=== PATIENT | female | born 1990 | race Caucasian/White ===

== ENCOUNTER 2017-07-08 20:37 | Emergency (ER) | payer OTHER ==
[2017-07-08 20:43] VITALS: BP 122/84; PULSE 93; TEMP 97.9; BMI 27.9
[2017-07-08 20:59] LABS: URINE APPEARANCE CLEAR; URINE BILIRUBIN NEGATIVE (NEGATIVE); URINE BLOOD NEGATIVE (NEGATIVE); URINE COLOR STRAW; URINE GLUCOSE (UA) NEGATIVE (NEGATIVE); URINE KETONE NEGATIVE (NEGATIVE); URINE NITRITE NEGATIVE (NEGATIVE); URINE PROTEIN NEGATIVE (NEGATIVE); URINE UROBILINOGEN NEGATIVE mg/dL (0.2-1.0)
--- NOTE | 2017-07-08 21:30 | PDOC ---
History of Present Illness - General Chief Complaint: Pain Stated Complaint: STOMACH PAIN Time Seen by Provider: 07/08/17 20:58 History Source: Patient - History of Present Illness Initial Comments: 07/08/17 21:29 26-year-old female complaining of right lower quadrant pain started this evening that worsens when she got home. Patient denies vaginal discharge, vaginal pain, reports same sexual partner and no exposure to sexually transmitted disease. LMP: 06/2017Denies nausea vomiting, urinary symptoms. Last bowel movement prior to arrival which is normal. Past surgical history: Appendectomy Timing/Duration: reports: intermittent Abdominal Pain Onset Location: reports: RLQ Pain Radiation: reports: no radiation Past History - Past Medical History Allergies/Adverse Reactions: Allergies Allergy/AdvReac Type Severity Reaction Status Date / Time amoxicillin Allergy Verified 07/08/17 20:40 Home Medications: Ambulatory Orders NK [No Known Home Medication] 07/08/17 Anemia: No Asthma: No Cancer: No Cardiac Disorders: No CVA: No COPD: No CHF: No Dementia: No Diabetes: No GI Disorders: No Disorders: Yes (H/O OVARIAN CYSTS) HTN: No Hypercholesterolemia: No Liver Disease: No Seizures: No Thyroid Disease: No - Surgical History Abdominal Surgery: No Appendectomy: Yes (08/30/13) Cardiac Surgery: No Cholecystectomy: No Lung Surgery: No Neurologic Surgery: No Orthopedic Surgery: No - Suicide/Smoking/Psychosocial Hx Smoking History: Never smoked Have you smoked in the past 12 months: No Number of Cigarettes Smoked Daily: 0 Hx Alcohol Use: Yes (SOCIAL) Drug/Substance Use Hx: No Substance Use Type: None Hx Substance Use Treatment: No Abd/GI Specific PMHX - Complaint Specific PMHX Colitis: No Diverticulitis: No Gall Bladder Disease: No GERD: Yes Hepatitis: No Irritable Bowel Synd (IBS): No Pancreatitis: No GI Ulcer Disease: No Review of Systems - Review of Systems Able to Perform ROS?: Yes Is the patient limited Yakut proficient: No Constitutional: No: Symptoms Reported, See HPI, Chills, Diaphoresis, Fever, Loss of Appetite, Malaise, Night Sweats, Weakness, Weight Stable, Unintentional Wgt. Loss, Unexplained wgt Loss, Other ABD/GI: Yes: Abdominal cramping : No: Symptoms Reported, See HPI, Burning, Dysuria, Discharge, Frequency, Flank Pain, Hematuria, Incontinence, Pain, Urgency, Testicular Mass, Testicular Swelling, Lesions, Testicular Pain, Other *Physical Exam - Vital Signs Last Vital Signs Temp Pulse Resp BP Pulse Ox 97.9 F 93 H 18 122/84 99 07/08/17 20:41 07/08/17 20:41 07/08/17 20:41 07/08/17 20:41 07/08/17 20:41 ED Treatment Course - ADDITIONAL ORDERS Additional order review: Laboratory Results 07/08/17 20:44 Urine Color Straw Urine Appearance Clear Urine pH 6.0 Urine Protein Negative Urine Glucose (UA) Negative Urine Ketones Negative Urine Blood Negative Urine Nitrite Negative Urine Bilirubin Negative Urine Urobilinogen Negative Urine HCG, Qual Negative - RADIOLOGY Radiology Studies Ordered: Category Date Time Status TRANSVAGINAL ULTRASOUND US [US] Stat Ultrasound 07/08/17 21:12 Ordered Radiograph Interpretation: US: normal limits Progress Note - Progress Note Progress Note: A: abdominal pain r/o ovarian torsion P: ua Urine u.s to rule torsion pain control *DC/Admit/Observation/Transfer Diagnosis at time of Disposition: Abdominal pain Qualifiers: Abdominal location: right lower quadrant Qualified Code(s): R10.31 - Right lower quadrant pain - Discharge Dispostion Disposition: HOME - Referrals Referrals: Esther Delong [Primary Care Provider] - Call tomorrow - Patient Instructions Printed Discharge Instructions: DI for Abdominal Pain-Adult Additional Instructions: take ibuprofen every 6 hours as needed for pain. drink plenty of fluids. follow up with your doctor as soon as possible. return to the ED if symptoms worsen.
[2017-07-08] MEDS ORDERED: IBUPROFEN 600 MG TABLET (FP) PO ONE ×2 (22:57→23:03)
[2017-07-08 23:08] LABS: URINE LEUK ESTERASE Negative (NEGATIVE)
== END 2017-07-08 23:38 | disposition home or self-care (01) ==
LOC: JER 20:37
DX: R10.31 Right lower quadrant pain (principal)
CPT/HCPCS: 76830-TC; 81003; 84703; 99282-25